=== PATIENT | female | born 2000 | race Two or more races ===

== ENCOUNTER 2022-10-05 13:25 | Emergency (ER) | payer OTHER ==
[~2022-10-05] VITALS: Ht 165.1 cm; Wt 81.6 kg
[~2022-10-05 13:25] MED LIST: CELESTONE0.6 MG/5 M; DELTUSS DMX LI120 ML
[2022-10-05] MEDS ORDERED: TRI-SPRINTEC T1 EACH PO (14:32)
== END 2022-10-05 19:51 | disposition home or self-care (01) ==
LOC: EMR PED 13:25
DX: J06.9 Acute upper respiratory infection, unspecified (principal); N28.9 Disorder of kidney and ureter, unspecified

== ENCOUNTER 2023-03-20 16:22 | Emergency (ER) | payer OTHER ==
[~2023-03-20] VITALS: Ht 160 cm; Wt 64.0 kg
[~2023-03-20 16:22] MED LIST changes: +TRI-SPRINTEC T1 EACH PO
[2023-03-20 19:23] LABS: HEMATOCRIT 43.2 % (36.0-45.00); HEMOGLOBIN 15.1 g/dL (12.0-15.00); MEAN CELL VOLUME 87.4 fL (80.00-100.00); MEAN CORPUSCULAR HEMOGLOBIN 30.6 pg (27.00-32.0); PLATELET COUNT 359 K/uL (150-450); RED BLOOD COUNT 4.94 M/uL (4.00-6.00); RED CELL DISTRIBUTION WIDTH 13.2 % (11.5-14.5)
[2023-03-20 19:49] LABS: ALBUMIN 3.9 gm/dL (3.4-5.0); BILIRUBIN TOTAL 0.56 mg/dL (0.3-1.2); CALCIUM 9.3 mg/dL (8.5-10.1); CREATININE SERUM 0.93 mg/dL (0.55-1.02); GFR 76.86; GLOBULINA 4.4 G/DL (2.4-3.5); POTASSIUM 3.57 mEq/L (3.5-5.1); TOTAL PROTEIN 8.3 gm/dL (6.4-8.2)
== END 2023-03-21 02:06 | disposition home or self-care (01) ==
LOC: EMR PED 16:22
PROVIDERS: Emergency Medicine Pediatric Emergency Medicine
DX: K29.70 Gastritis, unspecified, without bleeding (principal); R11.10 Vomiting, unspecified; R53.81 Other malaise